=== PATIENT | female | born 1950 | race Caucasian/White ===

== ENCOUNTER → 2016-11-04 | Outpatient (CLI) | payer BC, OTHER ==
[~2016-11-04] MED LIST: ACET-1311 PO; ALBU4TAB10 PO; ASCA500 PO; ASPI-435 PO; ATEN-173 PO; BIOT50006 PO; CALC-388 PO; CHOL1CAP57 PO; CLON0.5T3 PO; COEN1CAP7 PO; DILT40TA2 PO; FEXO1TAB49 PO; FLUT115A INH; GLUC1CAP35 PO; HMLI7525 SC; HYZ/10015 PO; INSDGI SC; INSPMPHMLG SC; MAGN1CAP4 PO; MONT1CHW6 PO; MULT-506 PO; NRN100 PO; OXYM0.0592; PRAV20TA PO; Potassium PO; TMB100 PO; [UNRECOGNIZED DRUG - CODE]; centrum silver
[2016-11-04 13:28] LABS: HEMATOCRIT 38.6 % (37-47); MEAN CELL VOLUME 92.6 fL (80-100); MEAN CORPUSCULAR HEMOGLOBIN 31.2 pg (25-34); MEAN CORPUSCULAR HGB CONC 33.7 g/dl (32-36); MEAN PLATELET VOLUME 10.4 fL (7.4-10.4); PLATELET COUNT 303 K/uL (130-400); RED BLOOD COUNT 4.17 M/uL (4.2-5.4); WHITE BLOOD COUNT 6.95 K/uL (4.8-10.8)
[2016-11-04 13:48] LABS: ESTIMATED AVERAGE GLUCOSE 177 mg/dl; HA1C FLAG Normal (Normal)
[2016-11-04 13:50] LABS: BLOOD UREA NITROGEN 18 mg/dl (7-18); C-REACTIVE PROTEIN 2.39 mg/dl (0-0.29); CARBON DIOXIDE 31 mmol/L (21-32); CHLORIDE 103 mmol/L (98-107); CREATININE 0.84 mg/dl (0.60-1.20); GLUCOSE 183 mg/dl (70-99); POTASSIUM 3.8 mmol/L (3.5-5.1); SODIUM 141 mmol/L (136-145); URIC ACID 3.8 mg/dl (2.6-7.2)
[2016-11-04 14:16] LABS: RATIO 14.9 mcg/mg (0-30.0)
[2016-11-04 14:27] LABS: CALCIUM 9.7 mg/dl (8.5-10.1)
== END | disposition home or self-care (01) ==
LOC: C.LABMFLN 09:40
PROVIDERS: ATTEND Family Medicine
DX: E11.9 Type 2 diabetes mellitus without complications (principal); I10 Essential (primary) hypertension; I48.92 Unspecified atrial flutter; E78.5 Hyperlipidemia, unspecified; S82.52XA Displaced fracture of medial malleolus of left tibia, initial encounter for closed fracture; E55.9 Vitamin D deficiency, unspecified; M10.9 Gout, unspecified; X58.XXXA Exposure to other specified factors, initial encounter

== ENCOUNTER 2016-12-09 10:55 | Observation (INO) | payer BC ==
[~2016-12-09] VITALS: Ht 157.5 cm; Wt 98.3 kg
--- NOTE | 2016-12-09 11:00 | History & Physical Bridge Note ---
H&P Re-Evaluation Bridge Note: I have examined the patient, reviewed the History & Physical and in the interval since the performance of the History & Physical I have noted the following changes of clinical significance: No changes noted
--- NOTE | 2016-12-09 11:02 | Procedure Note ---
Pre-Mod Sedation Assessment General Date of Moderate Sedation: December 09, 2016. Review Cardiovascular: regular rate, rhythm, no edema, no murmur Abdomen: soft Lungs: lungs clear, normal breath sounds Airway Class: II Pre-Sedation Airway Assessment Oral Cavity: WNL Short Thick Neck: No Hx of Sleep Apnea: No Smoking Status: Never Smoker Mallampati Classification: Class II ASA Classification: Class II Procedure Planning Contraindications-for Mod Sed: None Yes Notes The planned sedation has been discussed with the patient and consent obtained. I have identified the patient, determined the appropriateness of sedation and have assessed the patient immediately prior to the procedure. All medicine(s) and interventions are by my order.
[2016-12-09 11:17] VITALS: BP 158/96; PULSE 105; TEMP 36.4; O2SAT 96; BMI 39.0
[2016-12-09] MEDS ORDERED: GLUC1CAP35 PO (11:43)
[2016-12-09] MEDS ORDERED: PRAV20TA PO (11:43)
[2016-12-09] MEDS ORDERED: INSDGI SC (11:43)
[2016-12-09] MEDS ORDERED: HYZ/10015 PO (11:43)
[2016-12-09] MEDS ORDERED: Potassium PO (11:43)
[2016-12-09] MEDS ORDERED: COEN1CAP7 PO (11:43)
[2016-12-09] MEDS ORDERED: DILT40TA2 PO (11:43)
[2016-12-09] MEDS ORDERED: NRN100 PO (11:43)
[2016-12-09] MEDS ORDERED: BIOT50006 PO (11:43)
[2016-12-09] MEDS ORDERED: CHOL1CAP57 PO (11:43)
[2016-12-09] MEDS ORDERED: MONT1CHW6 PO (11:43)
[2016-12-09] MEDS ORDERED: MAGN1CAP4 PO (11:43)
[2016-12-09] MEDS ORDERED: ASCA500 PO (11:43)
[2016-12-09] MEDS ORDERED: MULT-506 PO (11:43)
[2016-12-09] MEDS ORDERED: ACET-1311 PO (11:43)
[2016-12-09] MEDS ORDERED: FLUT115A INH (11:43)
[2016-12-09] MEDS ORDERED: ASPI-435 PO (11:43)
[2016-12-09] MEDS ORDERED: [UNRECOGNIZED DRUG - CODE] (11:43)
[2016-12-09] MEDS ORDERED: CALC-388 PO (11:43)
[2016-12-09] MEDS ORDERED: ATEN-173 PO (11:43)
[2016-12-09] MEDS ORDERED: FEXO1TAB49 PO (11:43)
[2016-12-09] MEDS ORDERED: centrum silver (11:43)
[2016-12-09] MEDS ORDERED: OXYM0.0592 (11:43)
[2016-12-09] MEDS ORDERED: CLON0.5T3 PO (11:43)
[2016-12-09] MEDS ORDERED: ALBU4TAB10 PO ×2 (11:43)
[2016-12-09] MEDS ORDERED: HMLI7525 SC (11:43)
[2016-12-09] MEDS ORDERED: MIDAZOLAM HCL 5 MG/ML 1 ML VIAL ONE ×2 (12:07→13:08)
[2016-12-09] MEDS ORDERED: FENTANYL CITRATE INJ 50 MCG/1 ML 2 ML VIAL ONE ×3 (12:08→14:30)
--- NOTE | 2016-12-09 12:30 | HISTORY & PHYSICAL EXAMINATION ---
DATE OF ADMISSION: 12/09/2016 HISTORY OF PRESENT ILLNESS: This is a 66-year-old female who I saw in my office last month. She was referred to me due to atrial arrhythmias. She has been diagnosed with atrial flutter back in the Fall of 2015, did undergo a cardioversion in 2017 and remains on calcium channel blockers, beta blockers of Xarelto. She does report some anxiety, decreased activity levels and some occasional dyspnea on exertion. PAST MEDICAL HISTORY: Allergic rhinitis; asthma, severity to be determined; paroxysmal atrial flutter, diabetes, hypertension, and hyperlipidemia. PAST SURGICAL HISTORY: Sinus surgery in 2012. CURRENT OUTPATIENT MEDICINES: Cardizem, atenolol, Advair, losartan, hydrochlorothiazide, Xarelto, pravastatin, Coenzyme Q10, biotin, Neurontin, glucosamine, insulin, Lantus, Singulair, calcium, magnesium, clonazepam, vitamin C, fexofenadine, aspirin, multivitamin and potassium. ALLERGIES: ACTOS, NORVASC, AMOXICILLIN, AMPICILLIN, CALCIUM CHANNEL BLOCKERS, CEFTIN, VERAPAMIL, CRESTOR, DIPHENHYDRAMINE, GLUCOPHAGE, IBUPROFEN, KETEK, LORATADINE, LOTENSIN, MORPHINE, NASACORT, PENICILLIN, PHENOBARBITAL, ACARBOSE, LISINOPRIL, NIFEDIPINE, QUINAPRIL, SULFA, TRIAMTERENE, DYNACIRC AND EXENATIDE. FAMILY HISTORY: Significant for mother has hypertension and skin cancer. Father with hypertension and a stroke. SOCIAL HISTORY: She is . She is a lifelong nonsmoker. No illicit drug use. REVIEW OF SYSTEMS: All other 10 point review of systems is reviewed and is essentially negative at this time. See HPI for pertinent positives. PHYSICAL EXAMINATION: VITAL SIGNS: Temperature is 36.4 degree Celsius, heart rate 105, respirations 16, blood pressure 158/96, oxygen saturation 96% on room air. GENERAL: She is awake, alert and oriented in no acute distress, sitting up comfortably in a stretcher. HEENT: Normocephalic, atraumatic. Extraocular motion intact. Sclerae is nonicteric. Mucous membranes are moist. NECK: Supple, no carotid bruits appreciated. No JVD. Carotid upstrokes normal. CARDIOVASCULAR: Normal S1, S2, regular rate and rhythm, no murmur appreciated. PULMONARY: Clear to auscultation bilaterally. No wheezes, rales or rhonchi. ABDOMEN: Positive bowel sounds, soft, nontender, nondistended. EXTREMITIES: No clubbing or cyanosis b/l fingers No edema in bilateral lower extremities. Peripheral pulses intact. NEUROLOGIC: Grossly intact. SKIN: Grossly intact. RESULTS: Rhythm strip on 10/29/2016 - sinus asad at 55 beats per minute. EKG on 08/28/2016 - sinus rhythm. EKG 08/11/2016 - atrial flutter. Rhythm strips and 11/06/2016 131. EK09/19/2016 - atrial flutter, 131 beats per minute with 2:1 AV block. EK08/26/2016 - sinus asad, 53 beats per minute, QTC is 433 milliseconds. 08/18/2016 - atrial flutter with variable AV block at 54 beats per minute. 06/15/2016 - atrial flutter at 55 beats per minute. Echocardiogram in May 2016 - normal cardiac chamber size, mild LVH, concentric, ejection fraction 57%, no significant valvular pathology. The patient was in atrial flutter with rapid ventricular response at the time of the echo. LABORATORY STUDIES: Hemoglobin A1c on 08/24/2016 was 8.5. TSH on 09/20/2016 0.79. Cholesterol pattern on 08/24/2016 - triglycerides 142, total cholesterol 125, HDL 43, LDL 54. BMP and CBC back in 09/20/2016 were within normal limits. We are drawing a new set this afternoon on admission. IMPRESSION: 1. Paroxysmal atrial flutter with rapid ventricular response, diagnosed in the Fall of 2015 where she had a cardioversion in August 2016. She is on calcium channel justin, beta justin, and Xarelto. 2. Hypertension. 3. Hyperlipidemia. 4. Diabetes. PLAN: Recommend atrial flutter ablation. Discussed the procedure and the risks which include but are not limited to the patient sudden cardiac , cardiac arrhythmias, cerebrovascular accident, myocardial infarction, injury to the blood vessels, chamber of the heart or [place] electrical system where she needs a permanent pacemaker, bleeding, and infection. The patient understood these risks and agreed to have the procedure as planned. She will continue her Xarelto and will go from there. [facility] SYSTEM[facility]odia
[2016-12-09] MEDS ORDERED: HEPARIN SOD (PORCINE) 1000 UNIT/ML 10 ML VIAL ONE (13:06)
[2016-12-09] MEDS ORDERED: ACETAMINOPHEN 325 MG TAB PO PRN (15:15)
[2016-12-09] MEDS ORDERED: ALBUTEROL HFA INHALER 8.5 GM INH PRN (15:15)
--- NOTE | 2016-12-09 15:22 | Procedure Note ---
Post-Mod Sedation Assessment General Date of Moderate Sedation December 09, 2016. Vital Signs: Vital Signs Past 12 Hours Date Time Temp Pulse Resp B/P Pulse Ox O2 Delivery O2 Flow Rate FiO2 12/09/16 15:05 55 16 116/84 96 Room Air 12/09/16 15:00 58 16 110/80 98 Room Air 12/09/16 14:50 57 16 112/86 98 Room Air 12/09/16 11:17 36.4 105 16 158/96 96 Room Air Review - Discharge Criteria Vital Signs Stable: Yes Alert/Oriented/Conversant: Yes Returned to Baseline Mental St: Yes Nausea Absent/Minimal: Yes Pain/Discomfort/Absent/Minimal: Yes Normal/Baseline Respirations: Yes Active Bleeding?: No Pt Received D/C Instructions: N/A Prescriptions Given: None Specific Proced. D/C Criteria Distal Pulses Present (Cardiac: Yes Groin site assessed-Card Cath: Yes Voided Prior To Discharge: N/A Discharged Patients Adult Escort/Transportation: N/A
[2016-12-09] MEDS ORDERED: TMB100 PO (16:17)
--- NOTE | 2016-12-09 16:22 | Discharge Summary ---
Discharge Summary Date of Service December 09, 2016. Discharge Summary Admission Date: December 09, 2016 at 15:28 Discharge Date: Dec 10, 2016 Discharge Disposition: Home Principal Diagnosis: Persistent atypical atrial flutter (appears to be originating from the LA) Secondary Diagnoses/Problems: HTN HLD DM Procedures: EPS, 3d activation mapping of atrial flutter, 3d mapping of His Bundle, synchronized cardioversion Medication Reconciliation New Medications: Flecainide Acetate (Flecainide Acetate) 100 Mg Tab 100 MG PO Q12 for 30 Days, #60 TAB Continued Medications: Acetaminophen (Tylenol) 325 Mg Tab 650 MG PO BID PRN for Pain, TAB Albuterol (Ventolin) 4 Mg Tab 4 MG PO, TAB Albuterol (Ventolin) 4 Mg Tab 4 MG PO DAILY PRN for Shortness of Breath, TAB Ascorbic Acid (Vitamin C) 500 Mg Tab 1 TAB PO DAILY Aspirin (Aspirin 81) 81 Mg Tab 1 TAB PO DAILY Atenolol (Tenormin) 25 Mg Tab 25 MG PO BID, TAB Biotin (Biotin) 5,000 Mcg Sub 1 TAB PO DAILY Calcium Carbonate-Vitamin D (Calcium + D3 600-200 mg-Unit) 1 Tab Tab 1 TAB PO DAILY Cholecalciferol (Vitamin D3) 1,000 Unit Cap 1 TAB PO DAILY Clonazepam (Klonopin) 0.5 Mg Tab 0.5 MG PO BID, TAB Coenzyme Q10 (Ubidecarenone) (Coq10) 200 Mg Cap 1 TAB PO DAILY Fexofenadine Hcl (Yanique Allergy) 180 Mg Tab 1 TAB PO DAILY for 30 Days, #30 TAB 2 Refills Fluticasone-Salmeterol 115/21 Mcg (Advair Hfa 115/21 Mcg) 1 Aer Aer 1 PUFF INH BID, AER Gabapentin (Gabapentin) 100 Mg Cap 2 TAB PO DAILY Xywimngyohh-Demwxgvummu-Bau C- (Glucosamine Chondroitin) 1 Cap Cap 1 TAB PO DAILY Hctz/Losartan (Hyzaar 25MG/100MG) Tab 0.5 TAB PO BID, TAB Insulin Glargine (Lantus) 100 Unit/Ml Inj 0 SC AMPM, VIAL Insulin Lispro 75/25 (Humalog Mix 75/25) 100 Units/ Inj 0 SC ACHS, VIAL Magnesium Oxide (Magnesium) 500 Mg Cap 1 TAB PO DAILY Montelukast Sodium (Singulair Chewable) 5 Mg Chw 1 TAB PO DAILY for 30 Days, #30 TAB 5 Refills Multivitamin (Multivitamin) Tab 1 TAB PO DAILY, TAB Oxymetazoline Hcl (Nasal [place]) 0.05 % Spr Oxymetazoline Hcl (Nasal [place] Moisturizing) 0.05 % Spr PRN for Documentation Pravastatin (Pravachol ) 20 Mg Tab 20 MG PO DAILY, TAB [centrum silver] () [Potassium] () 595 MG PO DAILY Discontinued Medications: Diltiazem Hcl (Cardizem) 30 Mg Tab 30 MG PO BID, TAB Admission Information Physical Exam (per Admitting): aaox3, NAD supple, No JVD irregular S1S2, no murmur CTA b/l no w/r/r soft NT/ND No edema b/l no focal deficits Hospital Course Pt admitted for elective EPS with possible ablation. Pt underwent procedure without any complications; no ablation was performed at it appears the arrhythmia is most likely an atypical atrial flutter originating from the left atrium. Pt underwent direct synchronized cardioversion back to sinus rhythm. She was started on flecainide continued on atenolol but her Cardizem was stopped. She was monitored overnight and discharged home. Total time spent on discharge = This includes examination of the patient, discharge planning, medication reconciliation, and communication with other providers. Discharge Instructions ACTIVITY RECOMMENDATIONS: It is common to feel weak and fatigue for a few days. * Do not drive or operate any motorized equipment for the next 1 day. * Limit stair usage (2 or 3 trips a day only) for the next three days. * Do not lift anything heavier than 10 pounds for the next three days. * Do not engage in vigorous exercise or any sports for the next 7 days. * You may shower the day after your procedure, but do not immerse the area for three days. Cleanse the site gently with soap and water. SPECIAL CARE INSTRUCTIONS: * You may replace the pressure dressing or band-aid the morning after the procedure. * After your procedure, it is normal to have a small bruise or small lump at the site. Examine your site daily for any change in the bruise or lump, redness, swelling, drainage or numbness. Notify your doctor if any change. BLEEDING: * If there is a small amount of bleeding at the site, lie down and apply firm pressure with a clean cloth for ten minutes. When the bleeding stops, lie quietly keeping the procedure limb straight for six hours. Notify your doctor as soon as possible. * If the bleeding does not stop after ten minutes or if there is a large amount of bleeding or spurting, call 911 immediately. Continue to lie down and hold firm pressure until help arrives. SKIN IRRITATION: * You may experience some redness and/or swelling in the area where radiation was administered. If any skin irritation occurs, please contact your family physician. FOLLOW UP VISIT: Keep any scheduled doctor appointments.
--- NOTE | 2016-12-09 16:24 | Discharge Instructions ---
Discharge Instructions Date of Service December 09, 2016. Admission Reason for Admission: Atypical Atrial Flutter Discharge Discharge Diagnosis / Problem: atypical atrial flutter Discharge Goals Goal(s): Improve function Activity Recommendations Activity Limitations: as noted below Lifting Limitations: no more than 10 pounds May Resume Sexual Activity: after one week Shower/Bathe: tomorrow Driving or Machine Use: resume 1 day after discharge . Instructions / Follow-Up Instructions / Follow-Up ACTIVITY RECOMMENDATIONS: It is common to feel weak and fatigue for a few days. * Do not drive or operate any motorized equipment for the next 1 day. * Limit stair usage (2 or 3 trips a day only) for the next three days. * Do not lift anything heavier than 10 pounds for the next three days. * Do not engage in vigorous exercise or any sports for the next 7 days. * You may shower the day after your procedure, but do not immerse the area for three days. Cleanse the site gently with soap and water. SPECIAL CARE INSTRUCTIONS: * You may replace the pressure dressing or band-aid the morning after the procedure. * After your procedure, it is normal to have a small bruise or small lump at the site. Examine your site daily for any change in the bruise or lump, redness, swelling, drainage or numbness. Notify your doctor if any change. BLEEDING: * If there is a small amount of bleeding at the site, lie down and apply firm pressure with a clean cloth for ten minutes. When the bleeding stops, lie quietly keeping the procedure limb straight for six hours. Notify your doctor as soon as possible. * If the bleeding does not stop after ten minutes or if there is a large amount of bleeding or spurting, call 911 immediately. Continue to lie down and hold firm pressure until help arrives. SKIN IRRITATION: * You may experience some redness and/or swelling in the area where radiation was administered. If any skin irritation occurs, please contact your family physician. FOLLOW UP VISIT: Keep any scheduled doctor appointments. Current Hospital Diet Patient's current hospital diet: Regular Diet Discharge Diet Recommended Diet: AHA Diet (Heart Healthy), Diabetes Type 2 Diet Procedures Procedures Performed: EPS , 3d mapping of the right atrium to map the atrial flutter, 3d mapping of the His bundle, synchronized cardioversion Pending Studies Studies pending at discharge: no Laboratory Results Hemoglobin A1c Test 11/04/16 11:21 Range/Units Estimated Average Glucose 177 mg/dl Hemoglobin A1c 7.8 H 4.5-5.6 % Medical Emergencies . Who to Call and When: Medical Emergencies: If at any time you feel your situation is an emergency, please call 911 immediately. . Non-Emergent Contact Non-Emergency issues call your: Butter Production Supervisor . . "Provider Documentation" section prepared by Richa Palomino. . VTE Core Measure Inpt VTE Proph given/why not?: Other Anticoagulation (xarelto)
[2016-12-09 16:30] VITALS: BP 131/83; PULSE 62; TEMP 36.7; O2SAT 98; Ht 157.5 cm; Wt 98.3 kg
[2016-12-09] MEDS ORDERED: DEXTROSE 50% 50 ML SYR IV PRN (16:30)
[2016-12-09] MEDS ORDERED: GLUCAGON FOR INJ 1 MG VIAL SQ PRN (16:30)
[2016-12-09] MEDS ORDERED: PHARMACY GLYCEMIC MGMT CONSULT PRN (16:30)
[2016-12-09] MEDS ORDERED: GLUCOSE 10 TABS/TUBE PO PRN (16:30)
[2016-12-09] MEDS ORDERED: IV FLUIDS COMPLETED PRN (16:30)
[2016-12-09] MEDS ORDERED: GLUCOSE 40% GEL 15 GM TUBE PO PRN (16:30)
[2016-12-09] MEDS: INSULIN ASPART 100 UNITS/ML 3 ML PEN SC SCH ×2 (17:20→21:28)
[2016-12-09] MEDS: ACETAMINOPHEN 325 MG TAB PO PRN (17:59)
[2016-12-09 19:22] VITALS: BP 132/80; PULSE 72; TEMP 36.6; O2SAT 98
--- NOTE | 2016-12-09 20:18 | Pharmacy Progress Note ---
Glycemic Control Intl Consult Date of Service December 09, 2016. Scope Glycemic Pharmacist consulted by Dr Palomino on 12/09/16 for glycemic control and to write orders per [facility] inpatient glycemic control protocol Objective Weight (Kilograms): 98.000 Accuchecks BSG (last 24hrs): Test 12/09/16 15:52 Bedside Glucose 100 mg/dl (70-90) HbA1c 8.5% 08/24/16 --> 7.8% 11/04/16 Recent Pertinent Medications Outpatient Anti-diabetic Regimen: * Lantus 15 units in AM + 30 units in PM * Humalog bolus insulin per scale * CF = 30 {goal BSG 140mg/dl} * CR = 10 Assessment & Plan ASSESSMENT: * 66yo T2DM with improving glycemic control as an outpatient per recent A1cs. Pt is working with certified breastfeeding educator through [employer] and administers basal + prandial + correctional insulin. * Pt reports that BSGs have been on the "lower" side recently. Pt did not administer Lantus this morning prior to surgery and did not administer her dose last evening * Concern for hypoglycemia if outpatient doses are continued secondary to "lower" BSGs without insulin on board. * Pt reports that meals are less in house than what she typically has at home * Pt is requesting reduced basal insulin dosing to prevent low tomorrow AM * ADA & AACE recommend a goal blood sugar range 140-180 mg/dl for the majority of critically ill & non-critically ill patients. However, more stringent targets may be selected in individual cases. Will utilize more stringent target of 110-140mg/dl for tight control as an outpatient and to facilitate healing "post-operatively." PLAN FOR INPATIENT GLYCEMIC CONTROL: Utilize reduced outpatient dosing secondary to "lower" BSGs and recently omitted insulin doses. * Basal insulin: reduced outpatient dosing * Lantus 15 units SQ BID * {of note, outpatient dosing is 15 units in AM + 30 units in PM} * Bolus insulin: per outpatient dosing * NovoLog per scale ACHS or Q6hrs while NPO * Goal Range: Low 110 mg/dL - High 140 mg/dL * Correction Factor: 30 mg/dL/unit * Nutritional / Prandial insulin per carb ratio of 1 unit per 10 grams CHO consumed * A1c is up to date per outpatient records * Please note that the plan above was derived based on current level of insulin resistance and hospital stress. These recommendations are appropriate for inpatient admission only. Plan of care upon discharge will need to be reassessed to avoid potential outpatient hypo/hyperglycemia. Thank you.
[2016-12-09] MEDS ORDERED: INSULIN GLARGINE SOLOSTAR 100 UNITS/ML 3 ML PEN SC SCH (21:00)
[2016-12-09] MEDS ORDERED: CLONAZEPAM 0.5 MG TAB PO PRN (21:00)
[2016-12-09] MEDS: FLUTICASONE/SALMETEROL 100/50 (ADVAIR) 14 PUFF/1 INHALER INH SCH (21:18)
[2016-12-09] MEDS: FLECAINIDE ACETATE 100 MG TAB PO SCH (21:21)
[2016-12-09] MEDS: LOSARTAN/HCTZ 50-12.5 EA TAB PO SCH (21:22)
[2016-12-09] MEDS: INSULIN GLARGINE SOLOSTAR 100 UNITS/ML 3 ML PEN SC SCH (21:29)
[2016-12-09 23:39] VITALS: BP 106/68; PULSE 77; TEMP 37.1; O2SAT 94
--- NOTE | 2016-12-10 02:18 | OPERATIVE REPORT ---
DATE OF OPERATION: 12/09/2016 PREOPERATIVE DIAGNOSIS: Paroxysmal atrial flutter. POSTOPERATIVE DIAGNOSIS: Same, atypical atrial flutter, probably from left atrium, sinus rhythm. PROCEDUR: Electrophysiology study, 3D activation mapping of atrial flutter within the right atrium, 3D mapping of the His bundle, synchronized cardioversion. SURGEON: Richa Palomino DO. ASSISTANTS: None. ANESTHESIA: Monitored conscious sedation given under my supervision, administered by Adria Aranda, the total of 9 mg of Versed and 225 mcg of fentanyl, start time 12:40, end time 14:50. IV FLUIDS: 200 mL. CONTRAST: None. BLOOD LOSS: Less than 5 mL. COMPLICATIONS: None. CONDITION: Stable. URINE OUTPUT: Not applicable. SPECIMENS: None. FINDINGS: See below. DRAINS: None. INDICATIONS: This is a 66-year-old female who has a past medical history of paroxysmal atrial flutter. She was diagnosed in fall, started on Xarelto and beta blockers. She has been further on calcium channel blockers in addition to beta-blockers. She underwent a cardioversion due to recurrence of atrial flutter in August 2015 and then was referred to me. She also has a history of hypertension, diabetes, hyperlipidemia and obesity. When I saw her in the office, we discussed about atrial flutter, and it might be an atypical atrial flutter, but it is worth mapping to ensure because it could be amendable to ablation versus starting antiarrhythmics. She wanted to proceed with the EP study and ablation, so that is why she is here today. CONSENT: Consent was obtained prior to the patient going into the electrophysiology lab. The patient was explained the risks, benefits and alternatives to procedure. Risks include but not limited to sudden cardiac , cardiac arrhythmias, cerebrovascular accident, myocardial infarction, injury to the blood vessels, chamber of the heart or the [place] electrical system where she would need a permanent pacemaker, bleeding and infection. The patient understood these risks and agreed to have the procedure as planned. Informed consent was obtained. DESCRIPTION OF THE PROCEDURE: The patient was brought into the electrophysiology lab in a fasting state. She was connected to continuous cardiac monitoring. A timeout was performed to ensure patient's identity and procedure correctly. The patient was prepped and draped over the bilateral groins in normal surgical standard fashion. Monitored conscious sedation was given throughout the procedure for patient's comfort level. [place] precautions were maintained throughout the procedure. When the patient was hooked up to the monitor, it looked like she possibly could have been in an atrial fibrillation rather than atrial flutter, so we initially started off with using the modified Seldinger technique and putting in the 7-Kenyan sheath in the right femoral vein, then followed by a Alex quadripolar catheter into the right atrium. It was more organized, so did not look like flutter, so then I got another access using modified Seldinger technique in the left femoral vein with a 7 [place] sheath and placed the Decapolar Coronary Sinus Biosense DF curved catheter up into the coronary sinus. In the coronary sinus, the activation also looked organized proximal to distal ensuring me that it was not an atrial fibrillation on the left that was organized into a flutter, more organized on the right, so I took the Alex quadripolar catheter out, and I placed a Halo catheter up around into the right atrium. Then I initially paced and entrained the tachycardia cycle length, and had an atrial rate of 220 with a variable AV conduction. I entrained from the coronary sinus prox, and I got a PPI minus tachycardia cycle length of 30 milliseconds. When I entrained from the coronary sinus distal, PPI minus tachycardia cycle length was 60 milliseconds. When I entrained the tachycardia from the Halo prox, so I was on the lateral right atrial wall, the PPI minus tachycardia cycle length was 200 milliseconds, so it looked like possibly not a right atrial flutter at this juncture. In addition, the activation in the right atrium on the Halo had changed with that. I then got a second right femoral venous access on the right femoral vein, placed an SRO sheath up and SmartCool Thermal touch ablation catheter Biosense DF curve, and we did 3D activation mapping of the arrhythmia. We localized that earliest points were on the low septum right above coronary sinus os. When we mapped the entire right atrium, there was no early, mid or late activation to suggest that it was a macro reentry circuit. It looked more like a focal circuit expanding out, possibly could it have been an ATach; however, it was not completely behaving like any tach since it was still persistent. I then took the ablation catheter and 3D mapped the His bundle region, and then I had placed the ablation catheter right over one of the early points right above coronary sinus os on the septum. I did not have any His signals on my ablation. I went on radiofrequency ablation for total of 17 seconds at 30 drake, and the patient did seem to have a vagal response, she did asad down. I quickly came off. Her heart rate improved. I then decided that I took the Halo catheter out, I placed Alex quadripolar catheter in the high right atrium. I got a third access in the left femoral vein with 6-Kenyan sheath and placed the Alex catheter in the right ventricular apex, and I had a Hisser catheter over the His bundle at this juncture too. We measured an AH interval before ablation when I was 3D mapping the His bundle with the ablation catheter of 64 milliseconds and the HV was 58 milliseconds. I then opted to do 1 further ablation more towards the coronary sinus os at 20 drake for less than 10 seconds, it looked like she was again be going down and that is when I stopped immediately. I then brought my colleague, Dr. Crockett, in to review the case with me, and we both decided that although it looked very organized and did the activation in the coronary sinus was pretty close together and was not completely behaving what seemed like have been a left atrial flutter, it most likely probably was, and so I opted to do a synchronized cardioversion at 200 joules back to sinus rhythm. Once I obtained sinus rhythm, I did an electrophysiology study with the following findings. Electrophysiology study: NJ interval 210 milliseconds, QRS 78 milliseconds, QT 442 milliseconds, sinus cycle length 872 milliseconds, AH 124 milliseconds, HV 66 milliseconds. AV Wenckebach was found to be 440 milliseconds. The AV node ERP was found to be 700/370 and 500/410. The atrial ERP was 700/210 and 500/200. The right ventricular ERP was 600/216, 400/240 and there was AV dissociation with right ventricular burst pacing. All the catheters were then removed from the heart and the body and sheaths were pulled with manual compression to establish hemostasis. CONCLUSION: 1. SVT most consistent with atypical atrial flutter, probably originating from the left atrium somewhere. Successful direct synchronized cardioversion back to sinus rhythm. 2. Normal AV jeremy function. PLAN: Monitor patient, 12-lead ECG now. We will continue her Xarelto. I will talk to the patient about considering to stop some of her AV jeremy blockers and discussed about antiarrhythmic medicines. We could try flecainide. She will still need some form of AV jeremy justin to minimize any locked in syndrome with the class 1C agents or if she wishes to stay in the hospital for possible photo Sotalol versus Tikosyn initiation, we could do that too. She will follow up in my office as an outpatient in approximately 1 month's time. I attest to the content of the Intraoperative Record and any orders documented therein. Any exceptions are noted below. PROSPER
[2016-12-10 03:55] VITALS: BP 127/74; PULSE 84; TEMP 37.4; O2SAT 88
[2016-12-10 07:51] VITALS: BP 141/83; PULSE 83; TEMP 37.2; O2SAT 92
[2016-12-10] MEDS: ACETAMINOPHEN 325 MG TAB PO PRN (08:23)
[2016-12-10] MEDS: FLECAINIDE ACETATE 100 MG TAB PO SCH (08:23)
[2016-12-10] MEDS: LOSARTAN/HCTZ 50-12.5 EA TAB PO SCH (08:24)
[2016-12-10] MEDS: FLUTICASONE/SALMETEROL 100/50 (ADVAIR) 14 PUFF/1 INHALER INH SCH (08:26)
[2016-12-10] MEDS: INSULIN ASPART 100 UNITS/ML 3 ML PEN SC SCH ×2 (08:28→11:54)
[2016-12-10] MEDS: INSULIN GLARGINE SOLOSTAR 100 UNITS/ML 3 ML PEN SC SCH (08:29)
[2016-12-10] MEDS ORDERED: CALCIUM 600MG + VIT D 400 IU TAB PO SCH (09:00)
[2016-12-10] MEDS ORDERED: POTASSIUM 595 MG PO SCH (09:00)
[2016-12-10] MEDS ORDERED: MULTIVITAMIN TAB PO SCH (09:00)
[2016-12-10] MEDS ORDERED: NON-FORMULARY MEDICATION (Biotin 1 TAB) PO SCH (09:00)
[2016-12-10] MEDS ORDERED: ASPIRIN 81 MG ECTAB PO SCH (09:00)
[2016-12-10] MEDS ORDERED: PRAVASTATIN SOD 20 MG TAB PO SCH (09:00)
[2016-12-10] MEDS ORDERED: FEXOFENADINE HCL 180 MG TAB PO SCH (09:00)
[2016-12-10] MEDS ORDERED: NON-FORMULARY MEDICATION (Glucosamine-Chondroitin-Vit C- (Glucosamine Chondroitin) 1 TAB) PO SCH (09:00)
[2016-12-10] MEDS ORDERED: GABAPENTIN 100 MG CAP PO SCH (09:00)
[2016-12-10] MEDS ORDERED: INSULIN GLARGINE SOLOSTAR 100 UNITS/ML 3 ML PEN SC SCH (09:00)
[2016-12-10] MEDS ORDERED: COENZYME Q10 PO SCH (09:00)
[2016-12-10] MEDS ORDERED: MAGNESIUM OXIDE PO SCH (09:00)
[2016-12-10] MEDS ORDERED: ASCORBIC ACID 500 MG TAB PO SCH (09:00)
[2016-12-10] MEDS ORDERED: CHOLECALCIFEROL 1000 INTER.UNIT TAB PO SCH (09:00)
[2016-12-10] MEDS ORDERED: INSPMPHMLG SC (10:09)
[2016-12-10] MEDS ORDERED: INSDGI SC (10:09)
[2016-12-10 11:50] VITALS: BP 139/83; PULSE 81; TEMP 36.8; O2SAT 93
[2016-12-10 14:01] VITALS: BP 139/83; PULSE 81; TEMP 36.8; O2SAT 93
[2016-12-10] MEDS ORDERED: MONTELUKAST SOD 5 MG CHEWABLE TAB PO SCH (21:00)
== END 2016-12-10 15:08 | disposition home or self-care (01) ==
LOC: ENRESERVTM → ENRESERVDT → C.EP 10:55 → C.2T 15:28
PROVIDERS: ADMIT Internal Medicine; ATTEND Internal Medicine
DX: I48.0 Paroxysmal atrial fibrillation (principal); Z79.01 Long term (current) use of anticoagulants; I10 Essential (primary) hypertension; E78.5 Hyperlipidemia, unspecified; E11.9 Type 2 diabetes mellitus without complications

== ENCOUNTER → 2017-02-11 | Outpatient (CLI) | payer BC, OTHER ==
[~2017-02-11] MED LIST changes: -DILT40TA2 PO; -HMLI7525 SC
[2017-02-11 13:40] LABS: ESTIMATED AVERAGE GLUCOSE 192 mg/dl; HA1C FLAG Normal (Normal)
[2017-02-11 13:41] LABS: THYROID STIMULATING HORMONE 1.24 uIu/ml (0.300-4.500)
== END | disposition home or self-care (01) ==
LOC: C.LABMFLN 08:14
PROVIDERS: ATTEND Family Medicine
DX: E11.9 Type 2 diabetes mellitus without complications (principal); I10 Essential (primary) hypertension; E78.5 Hyperlipidemia, unspecified

== ENCOUNTER → 2017-03-11 | Outpatient (CLI) | payer BC, OTHER ==
[2017-03-11 18:36] LABS: BLOOD UREA NITROGEN 16 mg/dl (7-18); CREATININE 0.92 mg/dl (0.60-1.20)
== END | disposition home or self-care (01) ==
LOC: C.LABMFLN 15:33
PROVIDERS: ATTEND Family Medicine
DX: H81.49 Vertigo of central origin, unspecified ear (principal)

== ENCOUNTER → 2017-03-12 | Outpatient (CLI) | payer BC, OTHER ==
[~2017-03-12] MED LIST changes: +GADAVIST IV PRN
--- NOTE | 2017-03-12 07:36 | DIAGNOSTIC IMAGING REPORT ---
BRAIN COMBO CLINICAL HISTORY: 66 years-old Female presenting with vertigo of central origin. TECHNIQUE: Multisequence, multiplanar MR imaging of the brain was performed before and after the administration of intravenous contrast. IV contrast: 10 mL of Gadavist. COMPARISON: None. FINDINGS: Ventricles and sulci normal in size. Periventricular and subcortical white matter T2/FLAIR hyperintensity, nonspecific but likely indicative of chronic small vessel ischemic change. No mass effect or midline shift. No restricted diffusion to suggest acute ischemia. No hemorrhage. Choroid plexus cyst noted in the trigone of the left lateral ventricle. No extra-axial fluid collection. Paranasal sinuses and mastoid air cells clear. Calvarium intact. T2 skull base flow voids preserved. No abnormal parenchymal enhancement. Intracranial vasculature grossly patent. Bone marrow signal intensity within the calvarium within normal limits. IMPRESSION: 1. No acute intracranial abnormality. No abnormal enhancement. 2. Chronic small vessel ischemia. Electronically signed by: Zeyad De La Fuente M.D. 03/12/2017 7:35 AM Dictated Date/Time: 03/12/2017 7:30 AM
== END | disposition home or self-care (01) ==
LOC: C.MRI 05:52
PROVIDERS: ATTEND Family Medicine
DX: H81.49 Vertigo of central origin, unspecified ear (principal); I67.82 Cerebral ischemia

== ENCOUNTER → 2017-12-02 | Outpatient (CLI) | payer OTHER ==
[~2017-12-02] MED LIST changes: -GADAVIST IV PRN
[2017-12-02 13:27] LABS: HEMOGLOBIN A1C 9.2 % (4.5-5.6)
[2017-12-02 14:42] LABS: BLOOD UREA NITROGEN 18 mg/dl (7-18); CALCIUM 9.3 mg/dl (8.5-10.1); CARBON DIOXIDE 30 mmol/L (21-32); CREATININE 1.03 mg/dl (0.60-1.20); GLUCOSE 168 mg/dl (70-99); POTASSIUM 3.7 mmol/L (3.5-5.1); SODIUM 141 mmol/L (136-145)
== END | disposition home or self-care (01) ==
LOC: C.LABMFLN 10:28
PROVIDERS: ATTEND Family Medicine
DX: E11.9 Type 2 diabetes mellitus without complications (principal); I48.92 Unspecified atrial flutter; Z11.59 Encounter for screening for other viral diseases